=== PATIENT | male | born 1950 ===

== ENCOUNTER 2017-06-04 14:57 | Emergency (ER) | payer OTHER ==
[~2017-06-04] VITALS: Ht 182.9 cm; Wt 92.1 kg
[2017-06-04] MEDS ORDERED: DICLOFENAC POTA50 MG PO (20:34)
== END 2017-06-04 21:02 | disposition home or self-care (01) ==
LOC: ER 14:57
DX: R60.0 Localized edema (principal)

== ENCOUNTER 2019-05-25 10:59 | Emergency (ER) | payer OTHER ==
[~2019-05-25] VITALS: Ht 182.9 cm; Wt 85.7 kg
[~2019-05-25 10:59] MED LIST: DICLOFENAC POTA50 MG PO
[2019-05-25] MEDS ORDERED: CETIRIZINE HCL10 MG PO (11:34)
[2019-05-25] MEDS ORDERED: TAMS0.4C (11:34)
[2019-05-25] MEDS ORDERED: OSEL75CA PO (15:18)
== END 2019-05-25 16:34 | disposition home or self-care (01) ==
LOC: ER 10:59
DX: B37.9 Candidiasis, unspecified (principal); J09.X2 Influenza due to identified novel influenza A virus with other respiratory manifestations

== ENCOUNTER 2020-11-21 09:25 | Inpatient (IN) | payer OTHER ==
[~2020-11-21] VITALS: Ht 182.9 cm; Wt 90.7 kg
[~2020-11-21 09:25] MED LIST changes: +CETIRIZINE HCL10 MG PO; +OSEL75CA PO; +TAMS0.4C
== END 2020-11-23 13:54 | disposition home or self-care (01) | DRG 309 ==
LOC: ER 09:25 → SEC-K 16:08
PROVIDERS: ADMIT Internal Medicine; ATTEND Internal Medicine
PROC: 4A12X4Z Monitoring of Cardiac Electrical Activity, External Approach (ICD-10-PCS; principal; 2020-11-21)
DX: I49.3 Ventricular premature depolarization (principal); I24.9 Acute ischemic heart disease, unspecified; Z20.822 Contact with and (suspected) exposure to COVID-19